=== PATIENT | female | born 1975 | race Caucasian/White ===

== ENCOUNTER 2017-12-08 09:38 | Day surgery (SDC) | payer OTHER ==
[~2017-12-08] VITALS: Ht 162.6 cm; Wt 69.9 kg
[~2017-12-08 09:38] MED LIST: ALPRAZOLAM0.5 MG PO; AMBIEN10 MG PO; DILAUDID2 MG PO; ENDOCET 5-3251 EACH PO; ESGIC 50-325-41 EACH PO; MAXALT10 MG PO; PROAIR HFA8.5 GM IH; PROzac PO; Phenergan PO; TOPAMAX50 MG PO
[2017-12-08 10:43] VITALS: BP 135/64
[2017-12-08 16:13] VITALS: BP 124/70
[2017-12-08 17:20] VITALS: BP 136/78
[2017-12-08 18:35] VITALS: BP 136/71
== END 2017-12-08 18:40 | disposition home or self-care (01) ==
LOC: SDC 09:38
DX: N93.0 Postcoital and contact bleeding (principal); N83.202 Unspecified ovarian cyst, left side; N83.201 Unspecified ovarian cyst, right side; J45.909 Unspecified asthma, uncomplicated; F41.9 Anxiety disorder, unspecified; Z88.2 Allergy status to sulfonamides
CPT/HCPCS: 88305; J0131; J0690; J1100; J1170; J1200; J1885; J2250; J2405; J2710; J3010; J7120; Q0175; S0020

== ENCOUNTER 2018-02-25 20:55 | Emergency (ER) | payer OTHER ==
[~2018-02-25] VITALS: Ht 162.6 cm; Wt 75.9 kg
[2018-02-25 21:32] LABS: HEMATOCRIT 44.5 % (36.0-46.0); HEMOGLOBIN 16.1 G/DL (11.9-15.5); MCH 32.7 PG (29.0-34.0); MCHC 36.2 G/DL (30.0-36.0); MCV 90.3 FL (83-99); PLATELET COUNT 330 K/uL (156-360); RBC DIS.WIDTH-CV 12.2 % (11.8-14.6); RBC DIS.WIDTH-SD 40.1 % (39-53); RED BLOOD COUNT 4.93 M/uL (3.80-5.20); WHITE BLOOD COUNT 18.9 K/uL (4.1-10.2)
[2018-02-25 21:43] LABS: CHLORIDE 105 mEq/L (99-109); POTASSIUM 3.8 mEq/L (3.7-5.4); SODIUM 141 mEq/L (136-147)
[2018-02-25 21:45] LABS: GLUCOSE 113 mg/dL (70-99)
[2018-02-25 21:49] LABS: CREATININE 0.8 mg/dL (0.6-1.3); GFR ESTIMATE (CALCULATED) > 59 mL/min/
[2018-02-25 21:50] LABS: UREA NITROGEN (BUN) 15 mg/dL (9-23)
[2018-02-25 21:55] LABS: TROP-I INTERPRETATION NEGATIVE; TROPONIN-I < 0.01 ng/mL (0.0-0.30)
[2018-02-25] MEDS ORDERED: ZITHROMAX250 MG PO (23:58)
[2018-02-25] MEDS ORDERED: PREDNISONE20 MG PO (23:58)
[2018-02-25] MEDS ORDERED: PROVENTIL,2.5 MG/3 M IH (23:58)
[2018-02-26 00:36] VITALS: BP 133/78
== END 2018-02-26 00:36 | disposition home or self-care (01) ==
LOC: EME 20:55
PROVIDERS: Physician Assistant
DX: J18.0 Bronchopneumonia, unspecified organism (principal); J45.909 Unspecified asthma, uncomplicated; Z88.8 Allergy status to other drugs, medicaments and biological substances; Z88.5 Allergy status to narcotic agent; Z88.2 Allergy status to sulfonamides
CPT/HCPCS: 71046; 80048; 84484; 85027; 87502; 93005; 94640; 99281; 99283; J7512